=== PATIENT | female | born 1975 | race Caucasian/White ===

== ENCOUNTER 2017-02-23 18:37 | Emergency (ER) | payer SELFPAY ==
[2017-02-23 18:48] VITALS: BP 161/92
== END 2017-02-24 01:10 | disposition left against medical advice (07) ==
LOC: ER 18:37
DX: Z53.21 Procedure and treatment not carried out due to patient leaving prior to being seen by health care provider (principal)

== ENCOUNTER 2017-03-11 21:52 | Emergency (ER) | payer SELFPAY ==
[2017-03-12] MEDS ORDERED: METHOCARBAMOL 500 MG TABLET PO ONE (00:57)
--- NOTE | 2017-03-12 01:02 | ER Document Report ---
ED Neck/Back Problem - General Chief Complaint: Back Pain Stated Complaint: BACK PAIN Time Seen by Provider: 03/12/17 00:21 Mode of Arrival: Ambulatory Information source: Patient Notes: Patient is a 41-year-old female who presents to the ER today for a painful lump on the left side of her upper back 1 month. Patient states that it is very painful and that she can no longer leaning against anything without pain. She has not tried anything for the pain. She denies any numbness or tingling, pain over the middle of her back. The pain does not radiate anywhere. She's had no fever, chills, redness, drainage. TRAVEL OUTSIDE OF THE [place] IN LAST 30 DAYS: No - Related Data Allergies/Adverse Reactions: dextromethorphan HBr [From NyQuil] Allergy (Verified 03/11/17 22:09) doxylamine [From NyQuil] Allergy (Verified 03/11/17 22:09) pseudoephedrine HCl [From NyQuil] Allergy (Verified 03/11/17 22:09) Past Medical History - General Information source: Patient - Social History Smoking Status: Unknown if Ever Smoked Family History: Reviewed & Not Pertinent, CAD, Malignancy Patient has suicidal ideation: No Patient has homicidal ideation: No Neurological Medical History: Reports: Hx Migraine Renal/ Medical History: Denies: Hx Peritoneal Dialysis Psychiatric Medical History: Reports: Hx Bipolar Disorder, Hx Depression Past Surgical History: Reports: Hx Tubal Ligation - Immunizations Immunizations up to date: Yes Hx Diphtheria, Pertussis, Tetanus Vaccination: Yes Hx Pneumococcal Vaccination: 08/01/10 Review of Systems - Review of Systems Constitutional: No symptoms reported EENT: No symptoms reported Cardiovascular: No symptoms reported Respiratory: No symptoms reported Gastrointestinal: No symptoms reported Genitourinary: No symptoms reported Female Genitourinary: No symptoms reported Musculoskeletal: See HPI Skin: See HPI Hematologic/Lymphatic: No symptoms reported Neurological/Psychological: No symptoms reported Physical Exam - Vital signs Vitals: Temp Pulse Resp BP Pulse Ox 97.8 F 73 16 142/92 H 98 03/11/17 22:10 03/11/17 22:10 03/11/17 22:10 03/11/17 22:10 03/11/17 22:10 - Notes Notes: PHYSICAL EXAMINATION: GENERAL: Well-appearing and in no acute distress. HEAD: Atraumatic, normocephalic. EYES: Pupils equal round and reactive to light, extraocular movements intact, sclera anicteric, conjunctiva are normal. ENT: ear canals without erythema or foreign body, TMs pearly nina with good bony landmarks, nares patent, oropharynx clear without exudates. Moist mucous membranes. NECK: Normal range of motion, supple without lymphadenopathy LUNGS: CTAB and equal. No wheezes rales or rhonchi. HEART: Regular rate and rhythm without murmurs ABDOMEN: Soft, no tenderness. No guarding, no rebound BACK: right upper back with muscle knot, tender, no vertebral tenderness, normal ROM GI/: no CVA tenderness EXTREMITIES: Normal range of motion, no pitting edema. No cyanosis. NEUROLOGICAL: Cranial nerves grossly intact. Normal sensory/motor exams. PSYCH: Normal mood, normal affect. SKIN: Warm, Dry, normal turgor,no erythema, no rash, no fluctuance or abscess Course - Vital Signs Vital signs: Temp Pulse Resp BP Pulse Ox 97.8 F 73 16 142/92 H 98 03/11/17 22:10 03/11/17 22:10 03/11/17 22:10 03/11/17 22:10 03/11/17 22:10 Discharge - Discharge Clinical Impression: Muscle spasm Condition: Stable Disposition: HOME, SELF-CARE Additional Instructions: Return immediately for any new or worsening symptoms. Follow up with primary care provider, call tomorrow to make followup appointment. Prescriptions: Methocarbamol [Robaxin 500 mg Tablet] 1,000 mg PO BID #40 tablet
[2017-03-12 01:20] VITALS: BP 148/91
== END 2017-03-12 01:19 | disposition home or self-care (01) ==
LOC: ER 21:52
DX: M62.830 Muscle spasm of back (principal); M54.6 Pain in thoracic spine; M54.9 Dorsalgia, unspecified
CPT/HCPCS: 99283

== ENCOUNTER 2018-08-30 02:09 | Emergency (ER) | payer OTHER ==
[2018-08-30 02:18] VITALS: BP 148/91
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
[2018-08-30] MEDS ORDERED: ACETAMINOPHEN 325 MG TABLET PO ONE (02:50)
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
== END 2018-08-30 04:25 | disposition home or self-care (01) ==
LOC: ER 02:09
DX: S80.812A Abrasion, left lower leg, initial encounter (principal); S00.83XA Contusion of other part of head, initial encounter; R51 Headache; F17.210 Nicotine dependence, cigarettes, uncomplicated; V87.7XXA Person injured in collision between other specified motor vehicles (traffic), initial encounter
CPT/HCPCS: 70450; 70486; 72125; 99284